=== PATIENT | female | born 1945 | race Caucasian/White ===

== ENCOUNTER 2021-08-27 14:58 | Outpatient (CLI) | payer MEDICARE, OTHER | END 2021-08-27 14:59 | disposition home or self-care (01) | LOC: CSHMRI 14:58 | PROVIDERS: ATTEND Family Medicine | DX: G89.4 Chronic pain syndrome (principal); M47.816 Spondylosis without myelopathy or radiculopathy, lumbar region; M48.061 Spinal stenosis, lumbar region without neurogenic claudication; M43.16 Spondylolisthesis, lumbar region | CPT/HCPCS: 72148 ==

== ENCOUNTER 2023-07-15 08:43 | Outpatient (CLI) | payer MEDICARE, OTHER | END 2023-07-15 08:44 | disposition home or self-care (01) | LOC: CSHMRI 08:43 | PROVIDERS: ATTEND Family Medicine | DX: M25.552 Pain in left hip (principal); M47.26 Other spondylosis with radiculopathy, lumbar region; M51.16 Intervertebral disc disorders with radiculopathy, lumbar region | CPT/HCPCS: 72148 ==